=== PATIENT | female | born 1960 | race African-American/Black ===

== ENCOUNTER 2022-08-10 06:15 | Day surgery (SDC) | payer OTHER ==
[~2022-08-10] VITALS: Ht 167.6 cm; Wt 102.1 kg
[~2022-08-10 06:15] MED LIST: SULF-59
[2022-08-10] MEDS ORDERED: MIDAZOLAM 2 MG/2 ML VIAL ONE (07:13)
[2022-08-10] MEDS ORDERED: LIDOCAINE 2% 100 MG/5 ML UJET TP ONE (07:13)
[2022-08-10] MEDS ORDERED: fentaNYL citrate 0.05 MG/ML VIAL ONE (07:13)
[2022-08-10] MEDS ORDERED: fentaNYL citrate 0.05 MG/ML VIAL IVP ONE (09:55)
[2022-08-10] MEDS ORDERED: MIDAZOLAM 2 MG/2 ML VIAL IVP ONE (09:55)
== END 2022-08-10 10:40 | disposition home or self-care (01) ==
LOC: MDS 06:15 → MMU 06:17 → MDS 10:40
PROVIDERS: ATTEND Internal Medicine Gastroenterology
DX: Z12.11 Encounter for screening for malignant neoplasm of colon (principal); K57.30 Diverticulosis of large intestine without perforation or abscess without bleeding; K20.90 Esophagitis, unspecified without bleeding; F41.9 Anxiety disorder, unspecified; E11.9 Type 2 diabetes mellitus without complications; Z95.1 Presence of aortocoronary bypass graft; Z88.0 Allergy status to penicillin; Z88.5 Allergy status to narcotic agent; Z79.84 Long term (current) use of oral hypoglycemic drugs; Z79.899 Other long term (current) drug therapy
CPT/HCPCS: 36415; 43239; 86677; G0121; J2250; J3010